=== PATIENT | male | born 1940 | race Caucasian/White ===

== ENCOUNTER 2016-07-02 11:19 | Outpatient (CLI) | payer MEDICARE, BC ==
[2015-11-22 15:35] VITALS: O2SAT 95
== END 2016-07-02 11:20 | disposition home or self-care (01) | DRG 561 ==
LOC: CONVCARE 11:19
PROVIDERS: ATTEND Orthopaedic Surgery
DX: S72.141D Displaced intertrochanteric fracture of right femur, subsequent encounter for closed fracture with routine healing (principal)
CPT/HCPCS: 73502

== ENCOUNTER 2017-04-15 08:51 | Outpatient (CLI) | payer MEDICARE, BC ==
[2015-11-22 15:35] VITALS: O2SAT 95
== END 2017-04-15 08:52 | disposition home or self-care (01) | DRG 561 ==
LOC: CONVCARE 08:51
PROVIDERS: ATTEND Orthopaedic Surgery
DX: S72.141D Displaced intertrochanteric fracture of right femur, subsequent encounter for closed fracture with routine healing (principal)
CPT/HCPCS: 72170; 73502